=== PATIENT | female | born 1970 ===

== ENCOUNTER 2024-07-23 10:11 | Emergency (ER) | payer OTHER, SELFPAY ==
--- NOTE | ~2024-07-23 | XR_ITS ---
EXAMINATION: XR KNEE, LEFT CLINICAL INFORMATION: left knee pain COMPARISON: None available. TECHNIQUE: Four views of the left knee. FINDINGS: No acute cortical disruption or malalignment. No lytic or blastic lesions. No suprapatellar bursa joint effusion. No metallic or radiopaque foreign body. XR/XR knee LT 4V IMPRESSION: No acute fracture or dislocation Electronically signed by: Art Calderón MD 07/23/2024 01:20 PM EST
[2024-07-23 11:09] VITALS: BP 149/65; PULSE 78; RESP 16; TEMP 36.6; O2SAT 100; BMI 26.4
--- NOTE | 2024-07-23 12:46 | PC.NURSE ---
Pt. reports sustaining a mechanical fall at work. Denies HS or LOC. States that she fell on her left knee, and that the knee buckled under her and she heard a pop. [place] [facility] [place] is almost completely unable to bear weight on the left knee.
[2024-07-23] MEDS: Ketorolac Tromethamine 30 MG/ML VIAL IM (14:10)
[2024-07-23 14:16] VITALS: BP 152/78; PULSE 96; RESP 16; TEMP 37.1; O2SAT 95
--- NOTE | 2024-07-23 14:27 | ED_ITS ---
HPI - General Adult General Chief complaint: Extremity Injury, Lower Stated complaint: fall at work l knee inj Time Seen by Provider: 07/23/24 12:43 Source: patient Mode of arrival: ambulatory Limitations: no limitations History of Present Illness ED Provider: Chaparro Gilmore HPI narrative: 53 yold female who states no pmh presents to the ED for left knee pain. Patient states she was at work and she slipped on mud metal area while she slipped she heard a pop in her anterior and posterior knee and has had pain ever since. Patient is unable to bear weight. Patient denies hitting head or loss of consciousness. Patient denies any any other complaints. Related Data Previous Rx's ?Medication ?Instructions ?Recorded ketorolac 10 mg tablet 10 mg PO Q6H PRN pain 5 days #20 07/23/24 tabs Allergies Allergy/AdvReac Type Severity Reaction Status Date / Time acetaminophen [From Percocet] Allergy Hives Verified 07/23/24 11:14 Acyclovir Analogues Allergy Anaphylaxis Verified 07/23/24 11:14 black johnson Allergy Angioedema Verified 07/23/24 11:14 morphine Allergy Swelling Verified 07/23/24 11:14 nitrofurantoin Allergy Anaphylaxis Verified 07/23/24 11:14 [From Macrobid] oxycodone [From Percocet] Allergy Hives Verified 07/23/24 11:14 pineapple Allergy Angioedema Verified 07/23/24 11:14 tramadol Allergy Hives Verified 07/23/24 11:14 adhesive tape AdvReac Rash Verified 07/23/24 11:14 latex AdvReac Swelling Verified 07/23/24 11:14 Review of Systems 2 Review of Systems: Anterior posterior knee pain Yes all other systems are reviewed and are negative PMFSH Social History Social History Advance Directives: No Advance Directives Information Provided: Yes Physical Exam ED Vital Signs: Vital Signs - 24 hr 07/23/24 11:09 07/23/24 14:16 07/23/24 15:04 Temperature 97.9 F 98.7 F 98.7 F Pulse Rate 78 96 96 Respiratory Rate 16 16 16 Blood Pressure 149/65 H 152/78 H 152/78 H Pulse Oximetry 100 95 95 Oxygen Delivery Method Room Air Room Air Room Air BMI result Body Mass Index 26.4 Const General: cooperative, healthy appearing, comfortable, no acute distress, well developed, alert, awake and Physically active HENMT Head: Yes normal to inspection, Yes No palpable skull fracture present, Yes normocephalic and Yes atraumatic Ears: hearing grossly normal bilaterally, external ears normal, TM's normal bilaterally, TM normal on the right, TM normal on the left, EAC's normal, mastoids normal and no periauricular adenopathy Throat: Yes posterior oropharynx normal, Yes tonsils normal and Yes uvula midline Eyes General: appearance normal, both eyes and all related structures Neck Neck: Yes normal visual inspection, Yes full ROM, Yes no lymphadenopathy, Yes no meningeal signs, Yes trachea midline, Yes supple, No anterior neck swelling and No tender Chest Chest palpation & inspection: normal inspection of the chest and normal palpation of entire chest wall Resp Effort & Inspection: normal respiratory effort and able to speak in complete sentences Auscultation: clear to auscultation bilaterally Cardio Jugular venous distension: no JVD Heart sounds: S1 normal heart sound present and S2 normal heart sound present GI Inspection: Yes normal to inspection Palpation (GI): Soft to palpation, not firm, nontender, no guarding and not rigid General: Yes no CVA tenderness Back/Spine/Pelvis Back: no CVA tenderness and No back tenderness Skin General skin exam: no rashes or lesions noted, elasticity normal and turgor normal Neuro General: tone normal, moves all extremities, Normal light touch and pain sensation, no meningeal signs, no focal motor deficits, CN's II-XI intact bilaterally and normal sensation to monofilament Extrem General: Yes normal to inspection, Yes full ROM and Yes capillary refill normal Knee images: 2 1. Positive for tenderness on palpation. Negative for any ecchymosis, erythema, swelling, fluctuant mass, deformity, or crepitus. Patient has range of motion of knee but with pain. Rest of extremity normal. Negative for dip in anterior thigh to indicate quad tendon rupture Motor/neuro/vascular exam intact. 2. Positive for tenderness on palpation. Negative for any ecchymosis, erythema, swelling, fluctuant mass, deformity, or crepitus. Patient has range of motion of knee but with pain. Rest of extremity normal. Motor/neuro/vascular exam intact. Psych Appearance: grossly normal, well kempt and not disheveled Medications Administered Discontinued Medications Generic Name Dose Route Start Last Admin Trade Name Freq PRN Reason Stop Dose Admin Ketorolac Tromethamine 30 mg 07/23/24 13:55 07/23/24 14:10 Ketorolac Tromethamine 30 Mg/Ml Vial IM 07/23/24 13:56 30 mg ONCE ONE Administration Medical Decision Making Medical Decision Making [facility] Narrative: 53-year-old female with left knee pain after sliding and hearing a pop in her left knee while trying to break fall. Physical exam negative for signs of compartment syndrome, dislocation, DVT, arterial occlusion, patellar dislocation, necrotizing fascitits, osteomyelitits. or quad tendon rupture. Patient is placed in Sree wrap and crutches. Patient given Toradol. Patient informed to follow-up with orthopedic and primary care provider. Patient explained worrisome signs and informed to return to the ED immediately Differential Diagnosis Differential Diagnoses: The differential diagnosis associated with the presentation includes (Fracture) Admission/Observation Consideration of admission/observation: Escalation of care including admission/observation considered Independent Interpretation I performed an independent interpretation of an: Plain X-Ray Radiology Impression Discussion of test interpretation with radiology: I have reviewed the radiologist's reading. Independent Historian Clinical information obtained from an independent historian. History obtained from or confirmed by: Other (patient) External Record Review External record reviewed: Other (prior vistis) Prescription Management I considered prescription management with: Pain Medication Discharge Plan Discharge Clinical Impression: Knee sprain Patient Disposition: Home, Self-Care Instructions: Knee Sprain (DC), Crutch Instructions (ED), How to Use an Elastic Bandage (ED), R.I.C.E. Treatment (ED) Additional Instructions: Recommend follow-up with primary care provider and orthopedics. IF there is no improvement you may need MRI. Return to the ED for worsening pain, swelling, redness, bluish black discoloration, calf pain, chest pain, shortness of breath, coughing up blood, or any other concerning symptoms. FINDINGS: No acute cortical disruption or malalignment. No lytic or blastic lesions. No suprapatellar bursa joint effusion. No metallic or radiopaque foreign body. XR/XR knee LT 4V IMPRESSION: No acute fracture or dislocation Electronically signed by: Art Calderón MD 07/23/2024 01:20 PM [facility] Prescriptions: New ketorolac 10 mg tablet 10 mg PO Q6H PRN (Reason: pain) 5 Days Qty: 20 0RF Rx Instructions: Patient received 30 mg IM in the ED [place] [facility] [facility] [place] [facility] [facility] [[place] Group[place] (right knee sprain) Stand Alone Forms: Work/School Release Interventions: ED Discharge Assessment Last Done: 07/23/24 15:04 Discharge Date/Time: 07/23/24 15:04 Print Language: Persian
[2024-07-23 15:04] VITALS: BP 152/78; PULSE 96; RESP 16; TEMP 37.1; O2SAT 95
== END 2024-07-23 15:04 | disposition home or self-care (01) ==
PROVIDERS: Emergency Provider Emergency Medicine Emergency Medical Services; PCP Physician Assistant
DX: S83.92XA Sprain of unspecified site of left knee, initial encounter (principal); M25.562 Pain in left knee; W01.0XXA Fall on same level from slipping, tripping and stumbling without subsequent striking against object, initial encounter; Y93.89 Activity, other specified; Y92.89 Other specified places as the place of occurrence of the external cause; Y99.0 Civilian activity done for income or pay
CPT/HCPCS: 73564; 96372; 99283; 99284; J1885

== ENCOUNTER → 2024-07-23 12:43 | Outpatient (BNV) | payer OTHER, SELFPAY | PROVIDERS: Emergency Provider Emergency Medicine Emergency Medical Services; PCP Physician Assistant; Visit Provider Radiology Diagnostic Radiology | DX: M25.562 Pain in left knee (principal) | CPT/HCPCS: 73564 ==